=== PATIENT | male | born 1935 | race African-American/Black ===

== ENCOUNTER 2017-09-04 12:50 | Emergency (ER) | payer MEDICARE, MEDICAID ==
[~2017-09-04] VITALS: Ht 175.3 cm; Wt 65.8 kg
[~2017-09-04 12:50] MED LIST: ADVAIR 250-501 EACH INH; AMLODIPINE BESYL5 MG PO; ATENOLOL50 MG PO; CATAPRES0.2 MG PO; FERROUS SULFAT325 MG PO; METHOTREXATE2.5 MG PO; SULFASALAZINE500 MG PO; VITAMIN B-12100 MCG PO; ZYLOPRIM100 MG PO
[2017-09-04 12:54] VITALS: BP 176/86
--- NOTE | 2017-09-04 13:29 | Emergency Room Report ---
History of Present Illness General Chief Complaint: Generalized Weakness Source: Family Member (Juan Ramon King M.D.) Present Illness HPI The patient cannot give history due to clinical condition; history per caregiver (son.) The son says the patient has been breathing "hard" or "not normal" all night. No fever, no trauma. Ate normally yesterday, normal wet diaper. Baseline: bed/bound, nonambulatory, wears diapers. Feeds himself but otherwise other ADLs performed by son. Dementia. (Juan Ramon King M.D.) Allergies: Coded Allergies: No Known Allergies (Verified , 08/06/07) Nursing Documentation-[facility] Past Medical History: No History, Except For Hx Cardiac Problems: Yes Hx Hypertension: Yes Hx Asthma: Yes Hx Cancer: Yes Hx Neurological Problems: Yes - dementia Hx Cerebrovascular Accident: Yes (Juan Ramon King M.D.) Review of Systems Constitutional: Reports: no symptoms Eye: Reports: no symptoms ENT: Reports: no symptoms Respiratory: Reports: see HPI, shortness of breath Cardiovascular: Reports: no symptoms Gastrointestinal: Reports: no symptoms Genitourinary: Reports: no symptoms Musculoskeletal: Reports: no symptoms Skin: Reports: no symptoms Psychiatric: Reports: no symptoms Neurological: Reports: no symptoms Endocrine: Reports: no symptoms Hematologic/Lymphatic: Reports: no symptoms Allergic: Reports: no symptoms All Other Systems: negative except mentioned in HPI (Juan Ramon King M.D.) Physical Exam Vital Signs Date Time Temp Pulse Resp B/P (MAP) Pulse Ox O2 Delivery O2 Flow Rate FiO2 09/04/17 12:41 98.9 71 14 176/86 99 Room Air 99.0 Sp02 EP Interpretation: reviewed, normal General Appearance: no apparent distress, alert, non-toxic, Chronically Ill Head: normocephalic, atraumatic Eyes: bilateral eye normal inspection, bilateral eye PERRL, bilateral eye EOMI ENT: normal ENT inspection, hearing grossly normal, normal pharynx, no angioedema, moist mucus membranes Neck: full range of motion, supple, no meningismus, no bony tend Respiratory: normal inspection, lungs clear, normal breath sounds, no rhonchi, no respiratory distress, no retraction, no accessory muscle use, no wheezing Cardiovascular #1: normal inspection, regular rate, rhythm, no edema Gastrointestinal: normal inspection, normal bowel sounds, non tender, soft, non -distended Genitourinary: other - wet diaper Musculoskeletal: other - contracted, atrophied lower extrem; no edema Neurologic: normal inspection, alert, other - awake, looks around to name being called, MORAN spont, limited rom/contracted, nonverbal, nonfocal Psychiatric: other - cannot evaluate; dementia Suicide Risk Assessment: Suicidal Ideation: No Had intent to initiate attempt: No Pt's plan for suicide attempt: No Has means to complete attempt: No Skin: no rash, warm/dry (Juan Ramon King M.D.) Medical Decision Making Reaction to Intervention: No change (Juan Ramon King M.D.) Diagnostic Impression: Primary Impression: Episode of generalized weakness Additional Impression: UTI (urinary tract infection) ER Course See above note. UA with nitrites + and pyuria. Rocephin ordered. (Chi Villanueva M.D.) ER Course Urine Cx shows no sensitivity information for macrobid. I called patient and switched Rx To Levaquin. I called in Rx to [facility] pharmacy of patient's choice (Neville Lazcano MD) EKG Diagnostic Results EKG Time: 13:26 Rate: normal Rhythm: NSR ST Segments: no acute changes ASA given to the pt in ED: No (Juna Ramon King M.D.) Rhythm Strip Diag. Results Rhythm Strip Time: 14:00 EP Interpretation: yes Rate: 65 Rhythm: NSR (Juan Ramon King M.D.) Chest X-Ray Diagnostic Results Chest X-Ray Diagnostic Results : Chest X-Ray Ordered: Yes # of Views/Limited/Complete: 1 View Indication: Shortness of Breath EP Interpretation: Yes Interpretation: no consolidation, no effusion, no pneumothorax, no acute cardiopulmonary disease (Juan Ramon King M.D.) Reevaluation Time: 15:00 no distress; patient is hungry, communicates with me. I don't think there is an indication for hospitalization at this time. A: "alerted" resolved Last Vital Signs Date Time Temp Pulse Resp B/P (MAP) Pulse Ox O2 Delivery O2 Flow Rate FiO2 09/04/17 12:54 99.0 78 14 176/86 99 Room Air 99.0 Status: improved (Juan Ramon King M.D.) Status: improved (Chi Villanueva M.D.) Status: improved (Neville Lazcano MD) Disposition: HOME, SELF-CARE Condition: Stable Scripts Nitrofurantoin Monohyd/M-Cryst* (MACROBID 100 MG*) 100 Mg Capsule 100 MG ORAL EVERY 12 HOURS, #14 CAP Prov: Chi Villanueva M.D. 09/04/17 Juan Ramon King M.D. Sep 04, 2017 13:29 Chi Villanueva M.D. Sep 04, 2017 16:50 Neville Lazcano MD Sep 08, 2017 08:42
[2017-09-04 14:33] LABS: HEMATOCRIT 34.4 % (42.0-52.0); HEMOGLOBIN 10.1 G/DL (14.2-18.0); MEAN CORPUSCULAR VOLUME 77 FL (80-99); PLATELET COUNT 210 K/UL (150-450); RED BLOOD COUNT 4.47 M/UL (4.70-6.10); RED CELL DISTRIBUTION WIDTH 16.8 % (11.6-14.8); WHITE BLOOD COUNT 8.6 K/UL (4.8-10.8)
--- NOTE | 2017-09-04 14:35 | Diagnostic Imaging Report ---
Indication: Shortness of breath Technique: XRAY Chest 1v Comparison: 07/08/2012 Findings: Mild cardiomegaly. Mediastinal contours are sharp. No focal airspace consolidation, pleural effusion or pneumothorax. No acute osseous abnormality. Prominent colonic gas visualized in the upper abdomen. Correlate for abdominal pain. IMPRESSION: No radiographic evidence of acute cardiopulmonary disease. Mild cardiomegaly. Prominent nonspecific colonic gas noted in the upper abdomen. Correlate for history of abdominal pain.
[2017-09-04 14:43] LABS: ANION GAP 10 mmol/L (5-15); BLOOD UREA NITROGEN 13 mg/dL (7-18); CALCIUM 9.1 MG/DL (8.5-10.1); CARBON DIOXIDE 25 MMOL/L (21-32); CHLORIDE 109 MMOL/L (98-107); CREATININE 0.9 MG/DL (0.55-1.30); POTASSIUM 3.2 MMOL/L (3.5-5.1); SODIUM 144 MMOL/L (136-145)
[2017-09-04 14:48] LABS: ALANINE AMINOTRANSFERASE 14 U/L (12-78); ALBUMIN/GLOBULIN RATIO 0.7 (1.0-2.7); ALKALINE PHOSPHATASE 120 U/L (46-116); ASPARTATE AMINO TRANSFERASE 14 U/L (15-37); BILIRUBIN,TOTAL 0.4 MG/DL (0.2-1.0); CREATINE KINASE 39 U/L (26-308)
[2017-09-04 16:32] LABS: APPEARANCE,URINE CLOUDY; BILIRUBIN, URINE NEGATIVE (NEGATIVE); GLUCOSE, URINE (UA) NEGATIVE (NEGATIVE); KETONES,URINE NEGATIVE (NEGATIVE); LEUKOCYTE ESTERASE ,URINE 3+ (NEGATIVE); NITRITE,URINE POSITIVE (NEGATIVE); PH,URINE 6 (4.5-8.0); PROTEIN,URINE 3+ (NEGATIVE); UROBILINOGEN,URINE NORMAL MG/DL (0.0-1.0)
[2017-09-04 16:33] LABS: COLOR,URINE YELLOW
[2017-09-04 16:36] VITALS: BP 154/78
[2017-09-04] MEDS ORDERED: cefTRIAXone 1 GM in NS 55 ML IVPB ONE (16:45)
[2017-09-04] MEDS ORDERED: NITROFURANTOIN100 M2 ORAL (16:52)
[2017-09-04] MEDS ORDERED: cefTRIAXone 1 GM in D5W 110 ML IVPB ONE (17:00)
[2017-09-04 17:53] VITALS: BP 148/72
[2017-09-04 18:36] VITALS: BP 148/72
--- NOTE | 2017-09-05 14:20 | Cardiology Report ---
APPROVED REPORT EKG Measurement Heart [id number] PA 190P [id number] Normal sinus rhythm Nonspecific ST and T wave abnormality Abnormal ECG
== END 2017-09-04 18:38 | disposition home or self-care (01) ==
LOC: EDBD 12:50 → EMR 14:25 → EDBEDREQ 14:45 → EMR 18:38
DX: R53.1 Weakness (principal); N39.0 Urinary tract infection, site not specified; F03.90 Unspecified dementia, unspecified severity, without behavioral disturbance, psychotic disturbance, mood disturbance, and anxiety; I10 Essential (primary) hypertension; J45.909 Unspecified asthma, uncomplicated; Z85.9 Personal history of malignant neoplasm, unspecified; Z86.73 Personal history of transient ischemic attack (TIA), and cerebral infarction without residual deficits; I51.7 Cardiomegaly
CPT/HCPCS: 36415; 71045; 80053; 81003; 82550; 83605; 84484; 85007; 85025; 87040; 87086; 87181; 93005; 96365; 99283; J0696; 96374